=== PATIENT | male | born 1955 | race Caucasian/White ===

== ENCOUNTER 2017-09-07 19:51 | Emergency (ER) | payer OTHER ==
[~2017-09-07] VITALS: Ht 170.2 cm; Wt 71.4 kg
[~2017-09-07 19:51] MED LIST: ALPRAZOLAM1 M1 PO; ASPIR-LOW81 MG PO; ASPIRIN325 MG PO; BUSPAR10 MG PO; CELEXA10 MG PO; CELEXA20 MG PO; COLACE100 MG PO; CRESTOR10 MG PO; CRESTOR40 MG PO; Cipro PO; ELAVIL100 MG PO; FENOFIBRATE200 M1 PO; FEXOFENADINE H180 M1 PO; FLEXERIL10 MG PO; FLONASE16 G1 BOTH NARES; FLONASE16 G1 NS; Flagyl PO; INCRUSE ELLI62.5 MCG IH; ISOSORBIDE DINI30 MG PO; KENALOG,ARISTOC80 G1 TP; LEXAPRO20 MG PO; LO-DOSE ASPIRIN81 M2 PO; METOPROLOL SUCC25 MG PO; METOPROLOL TART25 MG PO; MIRALAX255 GM PO; Miralax, Glycolax PO; NIASPAN500 MG PO; NITROGLYCERIN0.4 MG SL; NITROSTAT0.4 MG SL; NYSTATIN1 EAC4 MC; OMEPRAZOLE20 MG PO; PAXIL CR25 MG PO; PERCOCET 5/31 TABLET PO; PERCOCET 7.51 TABLET PO; PLAVIX75 MG PO; PRAVASTATIN SOD80 MG PO; PRILOSEC20 MG PO; PROAIR HFA8.5 GM IH; PROTONIX40 MG PO; QVAR 40 MCG IN7.3 GM IH; SPIRIVA1 INHALATI IH; STRATTERA25 MG PO; TOPAMAX50 MG PO; TRAMADOL HCL50 MG PO; TRIAMCINOLONE A15 GM TP; VENTOLIN HFA18 GM IH; VITAMIN D250000 UNIT PO; XANAX1 MG PO; ZANTAC150 MG PO; ZESTRIL,PRINIV2.5 MG PO; ZYRTEC10 M2 PO
[2017-09-07 21:17] LABS: HEMATOCRIT 49.1 % (38.0-50.0); HEMOGLOBIN 17.4 G/DL (12.5-16.6); MCH 31.8 PG (29.0-34.0); MCHC 35.4 G/DL (30.0-36.0); MCV 89.6 FL (86-99); PLATELET COUNT 212 K/uL (156-360); RBC DIS.WIDTH-CV 11.9 % (11.8-14.6); RBC DIS.WIDTH-SD 38.9 % (39-53); RED BLOOD COUNT 5.48 M/uL (4.00-5.50); WHITE BLOOD COUNT 12.5 K/uL (4.1-10.2)
[2017-09-07 21:24] LABS: INTER. NORMALIZED RATIO 1.1
[2017-09-07 21:26] LABS: PTT 29.1 SEC (25-37)
[2017-09-07 21:28] LABS: CHLORIDE 101 mEq/L (99-109); SODIUM 135 mEq/L (136-147)
[2017-09-07 21:29] LABS: GLUCOSE 360 mg/dL (70-99)
[2017-09-07 21:33] LABS: CREATININE 0.9 mg/dL (0.6-1.3); GFR ESTIMATE (CALCULATED) > 59 mL/min/ (58.99-99999)
[2017-09-07 21:34] LABS: UREA NITROGEN (BUN) 12 mg/dL (9-23)
[2017-09-07] MEDS ORDERED: ZOFRAN ODT8 MG PO (23:17)
[2017-09-07] MEDS ORDERED: FIORICET 50-301 EAC1 PO (23:17)
[2017-09-08] VITALS: BP 132/76
== END 2017-09-08 00:01 | disposition home or self-care (01) ==
LOC: EXP 19:51 → EME 19:51 → EXP 09-08 00:01
PROVIDERS: Physician Assistant
DX: S09.90XA Unspecified injury of head, initial encounter (principal); F07.81 Postconcussional syndrome; Z79.02 Long term (current) use of antithrombotics/antiplatelets; H91.92 Unspecified hearing loss, left ear; W20.8XXA Other cause of strike by thrown, projected or falling object, initial encounter; I10 Essential (primary) hypertension; E78.5 Hyperlipidemia, unspecified; J44.9 Chronic obstructive pulmonary disease, unspecified; K21.9 Gastro-esophageal reflux disease without esophagitis; F32.9 Major depressive disorder, single episode, unspecified; F41.9 Anxiety disorder, unspecified; F17.200 Nicotine dependence, unspecified, uncomplicated; I25.2 Old myocardial infarction; Z95.1 Presence of aortocoronary bypass graft; Z86.73 Personal history of transient ischemic attack (TIA), and cerebral infarction without residual deficits; Z79.82 Long term (current) use of aspirin; Z88.0 Allergy status to penicillin
CPT/HCPCS: 70450; 80048; 85027; 85610; 85730; 99281; 99284

== ENCOUNTER 2017-09-11 15:44 | Emergency (ER) | payer OTHER ==
[~2017-09-11] VITALS: Ht 170.2 cm; Wt 73.8 kg
[~2017-09-11 15:44] MED LIST changes: +FIORICET 50-301 EAC1 PO; +ZOFRAN ODT8 MG PO
[2017-09-11 18:00] LABS: HEMATOCRIT 46.8 % (38.0-50.0); HEMOGLOBIN 16.3 G/DL (12.5-16.6); MCH 31.8 PG (29.0-34.0); MCHC 34.8 G/DL (30.0-36.0); MCV 91.2 FL (86-99); PLATELET COUNT 247 K/uL (156-360); RBC DIS.WIDTH-SD 39.8 % (39-53); RED BLOOD COUNT 5.13 M/uL (4.00-5.50)
[2017-09-11 18:14] LABS: INTER. NORMALIZED RATIO 1.1
[2017-09-11 18:17] LABS: CHLORIDE 100 mEq/L (99-109); POTASSIUM 4.1 mEq/L (3.7-5.4); SODIUM 135 mEq/L (136-147)
[2017-09-11 18:19] LABS: GLUCOSE 398 mg/dL (70-99)
[2017-09-11 18:23] LABS: GFR ESTIMATE (CALCULATED) > 59 mL/min/ (58.99-99999)
[2017-09-11 18:24] LABS: UREA NITROGEN (BUN) 9 mg/dL (9-23)
[2017-09-11] MEDS ORDERED: ULTRAM50 MG PO (21:07)
[2017-09-11 21:30] VITALS: BP 138/81
== END 2017-09-11 21:30 | disposition home or self-care (01) ==
LOC: EME 15:44
PROVIDERS: Nurse Practitioner Family
DX: H92.02 Otalgia, left ear (principal); F07.81 Postconcussional syndrome; R51 Headache; H70.90 Unspecified mastoiditis, unspecified ear; R42 Dizziness and giddiness; R11.0 Nausea; M54.2 Cervicalgia; H53.2 Diplopia; R40.2412 Glasgow coma scale score 13-15, at arrival to emergency department; I69.951 Hemiplegia and hemiparesis following unspecified cerebrovascular disease affecting right dominant side; I69.920 Aphasia following unspecified cerebrovascular disease; J44.9 Chronic obstructive pulmonary disease, unspecified; E78.5 Hyperlipidemia, unspecified; I10 Essential (primary) hypertension; I25.2 Old myocardial infarction; Z95.1 Presence of aortocoronary bypass graft; Z95.5 Presence of coronary angioplasty implant and graft; Z79.02 Long term (current) use of antithrombotics/antiplatelets; Z79.82 Long term (current) use of aspirin; Z88.0 Allergy status to penicillin; F17.200 Nicotine dependence, unspecified, uncomplicated
CPT/HCPCS: 70450; 80048; 85027; 85610; 99281; 99285; J1200; J1885; J7120; Q0164